=== PATIENT | female | born 1930 | race Caucasian/White ===

== ENCOUNTER 2020-10-31 21:12 | Emergency (ER) | payer OTHER ==
[~2020-10-31] VITALS: Ht 154.9 cm; Wt 68.0 kg
[~2020-10-31 21:12] MED LIST: ALLOPURINOL 30300 M1 PO; ASPIRIN EC81 M1 PO; DIABETA 2.5MG2.5 MG PO; DIOVAN320 MG PO; GLUCOSAMINE &1 EACH PO; HYDROCHLOROTHIA25 M1 PO; LUMIGAN2.5 M1 OP; MULTIVITAMINS PO; SIMVASTATIN40 MG PO; TIROSINT75 MCG PO; TOPROL XL100 MG PO; VITAMIN D-40010 MCG PO
[2020-10-31 21:14] VITALS: BP 169/82
[2020-10-31 21:51] LABS: BASOPHILS 0.7 % (0.0-2.0); EOSINOPHILS 1.3 % (0.0-3.0); HEMATOCRIT 31.3 % (37.0-47.0); MCH 30.7 pg (26.0-34.0); MCV 87.8 fL (80.0-100.0); MONOCYTES 6.7 % (1.0-8.0); PLATELET COUNT 386 thou/uL (150-400); POLYS 87.3 % (36.0-66.0); RBC 3.57 mil/uL (4.20-5.00); RDW 14.5 % (10.5-14.5); WBC 13.8 thou/uL (4.0-11.0)
[2020-10-31 22:10] LABS: ANION GAP 10 mmol/L (7-16); BUN 23 mg/dL (7-18); CALCIUM 9.8 mg/dL (8.5-10.1); CHLORIDE 94 mmol/L (98-107); CO2 23 mmol/L (21-32); CREATININE 0.9 mg/dL (0.6-1.0); GLUCOSE 252 mg/dL (74-106); POTASSIUM 4.3 mmol/L (3.5-5.1); SODIUM 127 mmol/L (136-145)
[2020-10-31 22:11] LABS: BE(vivo) -3.5 mmol/L (-2 to +3); HCO3 20.2 mmol/L (22.0-26.0); PCO2 32.6 mmHg (35.0-45.0); PO2 54.7 mmHg (80.0-100.0); pH 7.409 (7.360-7.450); sO2 89.1 % (92.0-98.0)
[2020-10-31 22:20] LABS: ALBUMIN 2.3 g/dL (3.4-5.0); LIPASE 177 U/L (73-393); SGOT 35 U/L (15-37); SGPT 35 U/L (14-59); TOTAL BILIRUBIN 0.4 mg/dL (0.2-1.0); TOTAL PROTEIN 6.7 g/dL (6.4-8.2); TROPONIN-I <0.06 ng/mL (<0.06)
[2020-11-01] MEDS ORDERED: OMEPRAZOLE 20 M20 M1 PO (03:10)
[2020-11-01] MEDS ORDERED: CARAFATE 1 GM TA1 G1 PO (03:11)
[2020-11-01] MEDS ORDERED: AMARYL2 MG PO (03:13)
[2020-11-01] MEDS ORDERED: ELIQUIS5 MG PO (03:13)
[2020-11-01 08:32] LABS: HEMATOCRIT 33.7 % (37.0-47.0); HEMOGLOBIN 11.4 gm/dL (12.0-15.0); MCH 30.3 pg (26.0-34.0); MCHC 33.9 g/dL (28.0-37.0); MCV 89.3 fL (80.0-100.0); RBC 3.77 mil/uL (4.20-5.00); RDW 14.4 % (10.5-14.5); WBC 10.4 thou/uL (4.0-11.0)
[2020-11-01 08:37] VITALS: BP 176/91
[2020-11-01 08:46] VITALS: BP 168/76
--- NOTE | 2020-11-01 08:46 | EKG ---
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1930 Requested By: Bill Ahmadi Order Number: [id number] MD: Alfred Fernandes Measurements Intervals House Rate: 105 P: [place]: QRS: 7 QRSD: 95 T: -4 QT: 337 QTc: 446 Interpretive Statements Atrial fibrillation Left ventricular hypertrophy Borderline repolarization abnormality No previous ECG available for comparison Electronically Signed On 11-01-2020 8:46:12 CDT by Alfred Fernandes [email or web address] <ELECTRONICALLY SIGNED> By: Alfred Fernandes MD, [facility] 11/01/20 0846 [id number] 2133 Alfred Fernandes MD, [facility] /EPI
[2020-11-01 08:48] LABS: ALBUMIN 2.3 g/dL (3.4-5.0); CALCIUM 9.3 mg/dL (8.5-10.1); CREATININE 1.1 mg/dL (0.6-1.0); POTASSIUM 3.5 mmol/L (3.5-5.1); TOTAL BILIRUBIN 0.5 mg/dL (0.2-1.0); TOTAL PROTEIN 6.9 g/dL (6.4-8.2)
[2020-11-01 09:24] LABS: CHOLESTEROL 135 mg/dL (<200); HDL CHOLESTEROL 65 mg/dL (>40); LDL CHOLESTEROL 55 mg/dL (<100); TC:HDL 2.1 Ratio (Not establshd); TRIGLYCERIDE 78 mg/dL (<150); VLDL 16 mg/dL (<40)
[2020-11-02 05:36] LABS: GLYCOHEMOGLOBIN (HGB A1C) 7.2 % (4.8-5.6)
[2020-11-02] MEDS ORDERED: LOSARTAN POTAS100 MG PO (20:13)
[2020-11-02] MEDS ORDERED: LATANOPROST 0.2.5 ML OPHTHALMIC (20:17)
[2020-11-02] MEDS ORDERED: DILTIAZEM HCL30 MG PO (20:18)
[2020-11-02] MEDS ORDERED: MAG6464 MG PO (20:28)
== END 2020-11-01 08:37 | disposition admitted as inpatient to this hospital (09) ==
LOC: ER 21:12 → EROBS 23:18 → ER 23:18
PROVIDERS: Nurse Practitioner; Nurse Practitioner Family
DX: R07.89 Other chest pain (principal); R10.9 Unspecified abdominal pain; R06.00 Dyspnea, unspecified; I50.9 Heart failure, unspecified; I11.0 Hypertensive heart disease with heart failure; E78.5 Hyperlipidemia, unspecified; Z90.49 Acquired absence of other specified parts of digestive tract; Z90.89 Acquired absence of other organs; Z90.13 Acquired absence of bilateral breasts and nipples; Z90.5 Acquired absence of kidney; Z79.2 Long term (current) use of antibiotics; Z79.82 Long term (current) use of aspirin; Z88.6 Allergy status to analgesic agent

== ENCOUNTER 2020-11-02 13:37 | Inpatient (IN) | payer OTHER ==
[~2020-11-02] VITALS: Ht 160 cm; Wt 59.0 kg
[~2020-11-02 13:37] MED LIST changes: +AMARYL2 MG PO; +CARAFATE 1 GM TA1 G1 PO; +ELIQUIS5 MG PO; +OMEPRAZOLE 20 M20 M1 PO
[2020-11-02 13:38] VITALS: BP 182/84
[2020-11-02 13:58] LABS: HEMATOCRIT 32.1 % (37.0-47.0); HEMOGLOBIN 10.5 gm/dL (12.0-15.0); MCH 29.3 pg (26.0-34.0); MCHC 32.7 g/dL (28.0-37.0); MCV 89.5 fL (80.0-100.0); PLATELET COUNT 423 thou/uL (150-400); RBC 3.59 mil/uL (4.20-5.00); RDW 14.2 % (10.5-14.5); WBC 20.9 thou/uL (4.0-11.0)
[2020-11-02 14:15] LABS: CREATININE 1.1 mg/dL (0.6-1.0); POTASSIUM 3.1 mmol/L (3.5-5.1)
[2020-11-02 14:16] LABS: BE(vivo) -0.3 mmol/L (-2 to +3); HCO3 22.9 mmol/L (22.0-26.0); PCO2 32.5 mmHg (35.0-45.0); PO2 72.7 mmHg (80.0-100.0); pH 7.466 (7.360-7.450); sO2 95.6 % (92.0-98.0)
[2020-11-02 14:18] LABS: CALCIUM 6.6 mg/dL (8.5-10.1)
[2020-11-02 14:21] LABS: ALBUMIN 1.7 g/dL (3.4-5.0); TOTAL BILIRUBIN 0.3 mg/dL (0.2-1.0); TOTAL PROTEIN 5.1 g/dL (6.4-8.2)
[2020-11-02 15:13] LABS: ABSOLUTE NEUTROPHILS 19.2 thou/uL (1.4-8.2)
[2020-11-02 16:51] LABS: BE(vivo) -2.1 mmol/L (-2 to +3); HCO3 20.6 mmol/L (22.0-26.0); PCO2 28.7 mmHg (35.0-45.0); PO2 97.1 mmHg (80.0-100.0); pH 7.473 (7.360-7.450); sO2 97.9 % (92.0-98.0)
[2020-11-02 19:32] VITALS: BP 147/93
--- NOTE | 2020-11-02 19:52 | NUR ---
1943 - PT RESTLESS, SOA, AFIB HR 120-130S, C/O ABDOMINAL PAIN. NOTIFIED COACH CLEANER GERONIMO DRAPER. ORDER RECEIVED. WILL GIVE PAIN MEDS AND REASSESS FOR IMPROVEMENT IN SYMPTOMS.
[2020-11-02] MEDS ORDERED: LOSARTAN POTAS100 MG PO (20:13)
[2020-11-02] MEDS ORDERED: LATANOPROST 0.2.5 ML OPHTHALMIC (20:17)
[2020-11-02] MEDS ORDERED: DILTIAZEM HCL30 MG PO (20:18)
[2020-11-02] MEDS ORDERED: MAG6464 MG PO (20:28)
[2020-11-02 20:59] LABS: CREATININE 1.5 mg/dL (0.6-1.0)
[2020-11-02 21:00] LABS: MAGNESIUM 1.5 mg/dL (1.8-2.4)
[2020-11-02 21:09] LABS: POTASSIUM 5.4 mmol/L (3.5-5.1)
[2020-11-02 23:42] VITALS: BP 142/73
--- NOTE | 2020-11-03 00:04 | NUR ---
PT C/O NAUSEA, INTERMITTENT ABDOMINAL PAIN, AND FLUSHING. AFEBRILE. VSS. SHE REMAINS VERY ANXIOUS, RESTLESS. NOTIFIED LOG SCALER GERONIMO DRAPER. ORDERS RECEIVED.
--- NOTE | 2020-11-03 00:05 | NUR ---
HEMATURIA NOTED IN BELLE. BELLE FLUSHED FOR PATENCY. NO CLOTS NOTED. BLADDER SCANNED TO MALE SURE NO RETENTION PRESENT; BLADDER SCANNED AMOUNT ONLY 3 ML. PREVIOUS RN REPORTED PT PULLED ON CATHETER EARLIER IN THE DAY WHEN SHE WAS VERY CONFUSED. NOTIFIED LAB ASST GERONIMO DRAPER. NO NEW ORDERS. HEMATURIA POSSIBLY DUE TO TRAUMA FROM PT PULLING ON CATHETER. WILL MONITOR FURTHER FOR NOW.
--- NOTE | 2020-11-03 03:43 | NUR ---
PT STILL HAVING HEMATURIA; NO CLOTS NOTED. NOTIFIED ENTERPRISE SYSTEMS ADMINISTRATOR GERONIMO DRAPER. ORDER RECEIVED TO OBTAIN UA FROM BELLE CATHETER.
[2020-11-03 03:53] LABS: URINE BILIRUBIN 1+ (Negative); URINE BLOOD 2+ (Negative); URINE CLARITY CLOUDY; URINE COLOR RED; URINE GLUCOSE-RANDOM* TRACE (Negative); URINE KETONES TRACE (Negative); URINE PROTEIN (DIPSTICK) 3+ (Negative); URINE SPECIFIC GRAVITY 1.025 (1.005-1.035)
[2020-11-03 03:55] LABS: URINE LEUKOCYTES-REFLEX 2+ (Negative); URINE NITRITE-REFLEX POSITIVE (Negative)
[2020-11-03 04:05] LABS: CASTS None Seen /LPF (None Seen); MUCUS None Seen strn/LPF (None Seen); SQUAMOUS None Seen /LPF (0-3)
[2020-11-03 04:06] LABS: BACTERIA-REFLEX 1-9 Few /HPF (None Seen); CRYSTALS None Seen /LPF (None Seen); URINE RBC >20 Many /HPF (NONE SEEN); URINE WBC-REFLEX 6-15 Few /HPF (0-5)
[2020-11-03 04:07] LABS: ICTOTEST (BILI CONFIRMATORY) Positive (Negative)
[2020-11-03 04:31] VITALS: BP 156/75
--- NOTE | 2020-11-03 06:38 | NUR ---
PT SLEPT VERY LITTLE DURING THE NIGHT. SHE WAS RESTLESS AND ANXIOUS, OFTEN C/O GENERALIZED BODY ACHES OR ABDOMINAL PAIN. TYLENOL GIVEN WITH SOME RELIEF. MORPHINE GIVEN TWICE DURING THE NIGHT, WITH SOME IMPROVEMENT IN PAIN AND RESTLESSNESS. SHE C/O INTERMITTENT NAUSEA WELL. ZOFRAN GIVEN. AFEBRILE. AFIB ON TELE WITH HR 120S-130S WHEN SHE WAS RESTLESS. WHEN PT WAS MORE CALM, HR 90S-110S. SPO2 >92% ON 15L NRB MASK. PT OCCASSIONALLY PULLED OFF HER NRB MASK WITH EPISODES OF INCREASED CONFUSION. O2 SATS DROPPED TO 70S-80S WITHOUT NRB MASK. SPOKE WITH PT'S DAVID THIS MORNING - UPDATED PROVIDED. WILL GIVE REPORT TO ONCOMING NURSE.
--- NOTE | 2020-11-03 06:53 | NUR ---
PT C/O INCREASED SOA AND STATED SHE WAS HAVING DIFFICULTY BREATHING. LUNGS WITH INCREASED CRACKLES. NOTIFIED MOTEL FRONT DESK ATTENDANT GERONIMO DRAPER. ORDERS RECEIVED FOR ONETIME DOSE LASIX AND CHEST XRAY.
[2020-11-03 07:10] LABS: HEMATOCRIT 32.3 % (37.0-47.0); HEMOGLOBIN 10.8 gm/dL (12.0-15.0); MCH 29.9 pg (26.0-34.0); MCHC 33.3 g/dL (28.0-37.0); MCV 89.6 fL (80.0-100.0); RBC 3.61 mil/uL (4.20-5.00); RDW 14.6 % (10.5-14.5); WBC 20.8 thou/uL (4.0-11.0)
[2020-11-03 07:29] LABS: CALCIUM 8.6 mg/dL (8.5-10.1); CREATININE 1.7 mg/dL (0.6-1.0); MAGNESIUM 1.7 mg/dL (1.8-2.4); POTASSIUM 5.9 mmol/L (3.5-5.1)
--- NOTE | 2020-11-03 07:30 | EKG ---
[place] [address] [facility] [place] [address] ELECTROCARDIOGRAM REPORT Name: BENJA NUNEZ Room #: 170-16 ADM IN M.R.#: [id number] Admission: 11/02/20 Attend Phys: Caryn Rodriguez MD Discharge: Date of : [birth year] Report #: [id number] 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1930 Requested By: Abdullahi Bazan Order Number: [id number] MD: Alfred Fernandes Measurements Intervals [place] Rate: 111 P: [place]: QRS: -7 QRSD: 92 T: 59 QT: 334 QTc: 454 Interpretive Statements Atrial fibrillation Ventricular premature complex Abnormal R-wave progression, late transition Probable LVH with secondary repol abnrm Compared to ECG 10/31/2020 21:33:34 Ventricular premature complex(es) now present Electronically Signed On 11-03-2020 7:30:40 CDT by Alfred Fernandes [email or web address] <ELECTRONICALLY SIGNED> By: Alfred Fernandes MD, [facility] 11/03/20729 1348 Alfred Fernandes MD, [facility] /EPI
--- NOTE | 2020-11-03 09:02 | NUR ---
PAGED FOR HOSPITALIST, PATIENT RESUFING ALL MEDICATIONS INCLUDING INSULIN. PATIENT STATES AT THIS TIME SHE IS ONLY OK WITH IV MEDICATIONS ONLY. PATIENT STATES SHE DOES NOT WANT CPR OR INTUBATION. PATIENT STATES SHE WANTS TO GO HOME TO [facility]. PATIENT AT THE BESIDE. PATIENT IS ALERT AND ORIENTED X4 TO PERSON, PLACE, TIME AND SITUATION AT THIS TIME.
--- NOTE | 2020-11-03 09:25 | NUR ---
HOSPITALIST HAS NOT RETURNED PAGE, REQUESTED N2ND PAGE TO DISCUSS PATIENT.
--- NOTE | 2020-11-03 09:43 | NUR ---
HOSPITALIST HAS STILL NOT RETURNED CALL, REQUESTED PAGE #3.
--- NOTE | 2020-11-03 10:02 | NUR ---
MARIBEL MATT REPORTED TO ME THAT HOSPITALIST REFUSED TO SPEAK TO THIS RN. REPORTS HOSPITALIST SAID SHE WAS BUSY WITH ICU PATIENTS. REPORTS THAT SHE WILL SUPPORT PATIENT AND FAMILY IN ANY DECISION THEY MAKE AND THAT SHE NOTED PATIENT WANTS TO BE A DNR. I REQUESTED HOSPITALIST BE PAGED BACK TO SPEAK TO THIS RN DIRECTNLY.
--- NOTE | 2020-11-03 10:37 | NUR ---
DR. NOWAK CALLED BACK AND SPOKE TO RN BJ, NOTIFIED THAT PATIENT IS REFUSING ALL ORAL MEDICATIONS AND THAT PATIENT STATES SHE WANTS TO BE MADE A DNR. NOTIFIED FAMILY IS TEARFUL AT THE BEDSIDE AND APPEARS TO BE PRESSURING PATIENT INTO TAKING MEDICATIONS MAKING STATEMENTS "PLEASE DO IT FOR US". DR. NOWAK REPORTED THAT THIS RN CAN APPLY DNR BAND AND THAT SHE WILL CHANGE CODE STUS IN CHART. INSTRUCTED RN TO DISCUSS PATIENT HAS FINAL SAY IN HER CARE WITH FAMILY. COMPLETED REQUESTED WITH FRAN REAVES -CHARGE - BRAD
[2020-11-03 12:00] VITALS: BP 165/91
[2020-11-03 15:31] VITALS: BP 165/91
[2020-11-03 15:44] VITALS: BP 149/80
[2020-11-03 18:36] VITALS: BP 150/49
--- NOTE | 2020-11-03 20:05 | NUR ---
Received pt from the ED, on a non rebreather mask running at 15 liters of O2. at the bed side. Med req validated, difficulty understading pt for admission since she was very short of breath with the slightest movement or effort. Fc in place draining blood tinged urine (d/t pt pullling on the purvis while at the ER). POC followed, endorsed to the night nurse.
[2020-11-03 20:20] VITALS: BP 125/75
--- NOTE | 2020-11-04 00:34 | NUR ---
ASSUMED PT CARE AROUND 1899. UPON INITIAL ASSESSMENT, PT WAS ANXIOUS, RESTLESS, BUT ABLE TO FOLLOW COMMANDS AND ANSWER ORIENTATION QUESTIONS. SHE C/O FEELING GENERALIZED BODY ACHES AND REQUESTED MORPHINE. MORPHINE GIVEN WITHOUT MUCH RELIEF IN SYMPTOMS. PT HAD PERIODS OF CONFUSION AND WOULD TAKE OFF HER NRB MASK, CAUSING SPO2 TO DROP TO 70S-80S. O2 SATS IMPROVED WITH REST AND WHEN MASK WAS PLACED BACK ON PT. PT REMINDED MULTIPLE TIMES TO LEAVE NRB MASK ON. PT'S WAS PRESENT AT BEDSIDE UNTIL AROUND 1929. PT C/O DIFFICULTY GETTING COMFORTABLE IN BED. REPOSITIONED PT TO HELP HER GET MORE COMFORTABLE. AROUND 2044, PT CONTINUOUS PULSE OX ALARMED AND NURSING STAFF WENT TO PT'S ROOM. PT NOTED TO BE HYPOXIC (SPO2 68-70S) WITH NRB MASK OFF. NRB MASK PLACED BACK ON PT AND SPO2 IMPROVED TO 91%. HOWEVER, PT WAS NONRESPONSIVE WITH APNEIC BREATHING, COOL EXTREMITIES, AND THREADY PULSE. SBP 40S. HR 40S. SHEAR SETTER PAGED. RT PLACED PT ON BIPAP 100%. GERONIMO DRAPER (BLUEPRINTING MACHINE OPERATOR FOR HOSPITALIST) NOTIFIED OF PT CONDITION CHANGE. NARCAN GIVEN AND NS BOLUS INITIATED PER PROVIDER ORDERS. PT REMAINED UNRESPONSIVE WITHOUT ANY IMPROVEMENT AFTER MEDS WERE GIVEN. NO CPR INITIATED PT DNR CODE STATUS. PT AT 2103. NOTIFIED BLUEPRINTING MACHINE OPERATOR BOX FABRICATOR FOR HOSPITALIST AND OTHER PROVIDER CONSULTS OF PT . PT'S AND DTR NOTIFIED OF PT AND THEY ARRIVED AT HOSPITAL TO SEE PT. MTN NOTIFIED OF PT . ALL PT BELONGINGS SENT WITH FAMILY, EXCEPT FOR PT'S TEETH, WHICH REMAIN IN PT'S MOUTH. FAMILY HAS NOT YET DECIDED ON HOME ARRANGEMENTS AND WILL CALL [facility] ONCE A DECISION IS MADE.
--- NOTE | 2020-11-04 07:12 | 2DMMODE ---
[facility] [place] [address] 2 D/M-MODE ECHOCARDIOGRAM Name: ENRIQUEBENJA Room #: 455-P DIS IN M.R.#: [id number] Admission: 11/02/20 Attend Phys: Caryn Rodriguez MD Discharge: 11/03/20 Date of : [birth year] Report #: [id number] THIS REPORT FOR: cc: Tamara Quintero MD, Genelle J. MD Lammoglia, Francisco J. MD ~ APPROVED REPORT Study performed: 11/03/2020 10:45:46 EXAM: Comprehensive 2D, Doppler, and color-flow Echocardiogram Patient Location: ER Room #: 15 Status: routine BSA: 1.61 HR: 105 bpm BP: 158/86 mmHg Rhythm: Atrial Fibrillation Other Information Study Quality: Good Indications Congestive Heart Failure Diabetes Atrial Fibrillation CAD 2D Dimensions RVDd: 39.33 mm IVSd: 16.17 (7-11mm) LVOT Diam: 20.43 (18-24mm) LVDd: 31.04 mm PWd: 14.17 (7-11mm) Ascending Ao: 29.76 (22-36mm) LVDs: 21.87 (25-40mm) Left Atrium: 39.71 (27-40mm) Aortic Root: 28.20 mm IVC: 20.00 mm Volumes Left Atrial Volume (Systole) Single Plane 4CH: 93.52 mL Single Plane 2CH: 71.91 mL LA ESV Index: 58.00 mL/m2 Aortic Valve AoV Peak Yash.: 1.73 m/s [facility] [address] [address] 2 D/M-MODE ECHOCARDIOGRAM Name: [place] Room #: 455-P [facility] IN M.R.#: [id number] Admission: 11/02/20 Attend Phys: Caryn Rodriguez MD Discharge: 11/03/20 Date of : [birth year] Report #: [id number] AO Peak Gr.: 11.99 mmHg LVOT Max P.93 mmHg LVOT Max V: 0.99 m/s ANEESH Vmax: 1.88 cm2 Pulmonary Valve PV Peak Yash.: 0.99 m/s PV Peak Gr.: 3.89 mmHg Tricuspid Valve TR Peak Yash.: 3.42 m/s TR Peak Gr.: 47.25 mmHg PA Pressure: 57.00 mmHg Left Ventricle The left ventricle is normal size. There is normal LV segmental wall motion. Mild to moderate concentric left ventricular hypertrophy. The left ventricular systolic function is normal. The left ventricular ejection fraction is within the normal range. LVEF is 60-65%. This study is not technically sufficient to allow evaluation of the LV diastolic function due to atrial fibrillation. Right Ventricle The right ventricle is normal size. The right ventricular systolic function is normal. Atria Left atrium is dilated. Right atrium is dilated. Aortic Valve The aortic valve is normal in structure. The Aortic valve is sclerotic. Trace aortic regurgitation. There is no aortic valvular stenosis. Mitral Valve The mitral valve is normal in structure. Mild to moderate mitral regurgitation. No evidence of mitral valve stenosis. Tricuspid Valve The tricuspid valve is normal in structure. There is moderate tricuspid regurgitation. Estimated PAP 57 mmHg. There is moderate pulmonary hypertension. Pulmonic Valve The pulmonary valve is normal in structure. There is no pulmonic valvular regurgitation. Great Vessels [facility] [address] [place] [address] 2 D/M-MODE ECHOCARDIOGRAM Name: [place] Room #: 455-[facility] IN M.R.#: [id number] Admission: 11/02/20 Attend Phys: Caryn Rodriguez MD Discharge: 11/03/20 Date of : [birth year] Report #: [id number] The aortic root is normal in size. IVC is dilated and collapses >50% with inspiration. Pericardium There is no pericardial effusion. <Conclusion> The left ventricle is normal size. Moderate to severe concentric left ventricular hypertrophy. LVEF is 60-65%. This study is not technically sufficient to allow evaluation of the LV diastolic function due to atrial fibrillation. Left atrium is dilated. Right atrium is dilated. The aortic valve is normal in structure. The Aortic valve is sclerotic. Trace aortic regurgitation. The mitral valve is normal in structure. Mild to moderate mitral regurgitation. The tricuspid valve is normal in structure. There is moderate tricuspid regurgitation. Estimated PAP 57 mmHg. There is moderate pulmonary hypertension. The pulmonary valve is normal in structure. The aortic root is normal in size. The aortic root is normal in size. There is no pericardial effusion. <ELECTRONICALLY SIGNED> By: Bonifacio Escalera MD 11/03/20 1244 1244 1244 Bonifacio Escalera MD /INF
== END 2020-11-03 21:04 | DRG 193 ==
LOC: ER 13:37 → EROBS 16:19 → 4W 11-03 16:39
PROVIDERS: Emergency Medicine; Nurse Practitioner Family; ADMIT Internal Medicine; ATTEND Internal Medicine
PROC: 5A09357 Assistance with Respiratory Ventilation, Less than 24 Consecutive Hours, Continuous Positive Airway Pressure (ICD-10-PCS; principal; 2020-11-03)
DX: J18.9 Pneumonia, unspecified organism (principal); J96.01 Acute respiratory failure with hypoxia; E43 Unspecified severe protein-calorie malnutrition; I48.20 Chronic atrial fibrillation, unspecified; N17.9 Acute kidney failure, unspecified; I11.0 Hypertensive heart disease with heart failure; I25.10 Atherosclerotic heart disease of native coronary artery without angina pectoris; E78.5 Hyperlipidemia, unspecified; I50.9 Heart failure, unspecified; E11.9 Type 2 diabetes mellitus without complications; E87.6 Hypokalemia; E03.9 Hypothyroidism, unspecified; E83.42 Hypomagnesemia; Z96.653 Presence of artificial knee joint, bilateral; Z20.822 Contact with and (suspected) exposure to COVID-19; Z90.49 Acquired absence of other specified parts of digestive tract; Z95.1 Presence of aortocoronary bypass graft; Z90.13 Acquired absence of bilateral breasts and nipples; Z85.53 Personal history of malignant neoplasm of renal pelvis; Z98.891 History of uterine scar from previous surgery; Z79.82 Long term (current) use of aspirin; Z79.01 Long term (current) use of anticoagulants; Z79.899 Other long term (current) drug therapy; Z88.5 Allergy status to narcotic agent; Z68.23 Body mass index [BMI] 23.0-23.9, adult
CPT/HCPCS: 10045